=== PATIENT | female | born 1995 | race Two or more races ===

== ENCOUNTER 2017-07-22 20:44 | Emergency (ER) | payer OTHER ==
[~2017-07-22] VITALS: Ht 165.1 cm; Wt 70.3 kg
[~2017-07-22 20:44] MED LIST: BENTYL10 MG DOB; CIPRO PO; FAMOTIDINE PO; IBUPROFEN600 MG PO
[2017-07-22 22:25] LABS: URINE SOURCE CLEAN CATCH
[2017-07-22 22:33] LABS: URINE APPEARANCE CLEAR; URINE BILIRUBIN NEG (NEG); URINE BLOOD 3+ (NEG); URINE COLOR YELLOW; URINE GLUCOSE NEG (NEG); URINE KETONE NEG (NEG); URINE LEUKOCYTE ESTERASE 1+ (NEG); URINE NITRATE NEG (NEG); URINE PROTEIN 1+ (NEG); URINE SPECIFIC GRAVITY 1.023 (1.003-1.035)
[2017-07-22 22:34] LABS: URBCS1 AUWI 100-200 /[HPF] (0-2); URINE BACTERIA AUWI 1+ (NEGATIVE); URINE SQUAMOUS EPITHELIAL CELL FEW /[HPF]
== END 2017-07-22 23:22 | disposition home or self-care (01) ==
LOC: CED 20:44
PROVIDERS: Emergency Medicine
DX: N92.0 Excessive and frequent menstruation with regular cycle (principal); R10.2 Pelvic and perineal pain; F17.200 Nicotine dependence, unspecified, uncomplicated
CPT/HCPCS: 81003; 84703; 96372; 99284; J1885